=== PATIENT | female | born 1975 | race Caucasian/White ===

== ENCOUNTER 2020-11-05 13:43 | Inpatient (IN) | payer MEDICARE, OTHER ==
[~2020-11-05] VITALS: Ht 167.6 cm; Wt 121.0 kg
[~2020-11-05 13:43] MED LIST: AMARYL2 MG PO; CELEXA10 MG PO; K-DUR20 MEQ PO; LASIX20 MG PO; LASIX40 MG PO; LIPITOR20 M1 PO; LITHIUM300 MG PO; METFORMIN HCL500 MG PO; MOBIC7.5 MG PO; RISPERDAL 1MG TA1 MG PO; SYNTHROID50 MCG PO; TRAZODONE 100M100 MG PO; ZAROXOLYN2.5 MG PO
[2020-11-05 14:38] LABS: BASOPHIL 0.3 % (0-2); EOSINOPHIL 0.2 % (0-5); HCT 39.5 % (37.0-47.0); HGB 13.3 g/dl (12.5-16.0); LYMPHOCYTE 6.3 % (15-48); MCH 30.6 pg (25.0-31.0); MCHC 33.7 g/dL (32.0-36.0); MCV 90.8 fL (78.0-100.0); MONOCYTE 17.4 % (0-12); MPV 9.3 fL (6.0-9.5); NEUTROPHIL 73.5 % (41-80); NRBC 0.1; PLT 475 K/uL (150-400); RBC 4.35 M/uL (4.20-5.40); RDW 14.7 % (11.5-14.0)
[2020-11-05 15:03] LABS: LACTIC ACID 5.3 mmol/L (0.4-1.9)
[2020-11-05 15:05] LABS: ALBUMIN 3.7 g/dL (3.4-5.0); BILIRUBIN - TOTAL 0.2 mg/dL (0.2-1.0); CREATININE 1.1 mg/dL (0.51-0.95); GLOBULIN (CALCULATION) 4.1 g/dL; TOTAL PROTEIN 7.8 g/dL (6.4-8.2)
[2020-11-05 17:25] LABS: BILIRUBIN NEGATIVE (NEGATIVE); BLOOD NEGATIVE Ery/uL (NEGATIVE); CLARITY HAZY (CLEAR); COLOR YELLOW (YELLOW); GLUCOSE (U) NORMAL (NORMAL); LEUKOCYTES NEGATIVE Leu/uL (NEGATIVE); NITRITE NEGATIVE (NEGATIVE); PROTEIN NEGATIVE (NEGATIVE); UROBILINOGEN 0.2 mg/dL (0.2-1.0)
[2020-11-05] MEDS ORDERED: CLARITIN10 MG PO (20:03)
[2020-11-05] MEDS ORDERED: CILOSTAZOL100 MG PO (20:04)
[2020-11-06 06:05] LABS: BASOPHIL 0.2 % (0-2); EOSINOPHIL 0 % (0-5); HGB 12.2 g/dl (12.5-16.0); LYMPHOCYTE 4.2 % (15-48); MCHC 33.9 g/dL (32.0-36.0); MCV 91.4 fL (78.0-100.0); MONOCYTE 8.9 % (0-12); MPV 9.6 fL (6.0-9.5); NEUTROPHIL 83.9 % (41-80); NRBC 0.1; PLT 455 K/uL (150-400); RBC 3.94 M/uL (4.20-5.40)
[2020-11-06 06:45] LABS: WBC 35.5 K/uL (4.0-10.5)
[2020-11-06 06:48] LABS: CREATININE 0.89 mg/dL (0.51-0.95); POTASSIUM 4.1 mmol/L (3.5-5.1)
[2020-11-07 06:26] LABS: BASOPHIL 0.1 % (0-2); EOSINOPHIL 0 % (0-5); HCT 35.4 % (37.0-47.0); LYMPHOCYTE 8.4 % (15-48); MCH 31.1 pg (25.0-31.0); MCHC 33.9 g/dL (32.0-36.0); MCV 91.7 fL (78.0-100.0); MONOCYTE 7.6 % (0-12); MPV 9.6 fL (6.0-9.5); NRBC 0.1; PLT 457 K/uL (150-400); RBC 3.86 M/uL (4.20-5.40); RDW 15.3 % (11.5-14.0); WBC 29.2 K/uL (4.0-10.5)
[2020-11-07 07:46] LABS: CREATININE 0.8 mg/dL (0.51-0.95); POTASSIUM 3.6 mmol/L (3.5-5.1)
[2020-11-07 07:47] LABS: C-REACTIVE PROTEIN 9.8 mg/dL (<=0.90)
[2020-11-07] MEDS ORDERED: LACTINEX1 EACH PO (10:06)
[2020-11-07] MEDS ORDERED: ASCORBIC ACID500 MG PO (10:06)
[2020-11-07] MEDS ORDERED: LEVAQUIN750 MG PO (10:06)
[2020-11-07] MEDS ORDERED: ZINC SULFATE50 MG PO (10:06)
[2020-11-07] MEDS ORDERED: DEXAMETHASONE 2M2 MG PO (10:06)
[2020-11-07] MEDS ORDERED: JANUMET 50-1,01 EACH PO (10:11)
[2020-11-07] MEDS ORDERED: COMBIVENT RESPIM4 GM INH (10:44)
--- NOTE | 2020-11-07 12:51 | NUR ---
ADVISED BY DR. KEYES THAT PT. WOULD NEED HOME O2. SENT FAX TO [facility] FOR HOME O2.
== END 2020-11-07 13:34 | disposition home or self-care (01) | DRG 871 ==
LOC: FER 13:43 → FTCU 17:23 → FMS 17:23 → FTCU 17:51
PROVIDERS: Nurse Practitioner; Nurse Practitioner Family; ADMIT Allergy & Immunology Allergy
PROC: 8E0ZXY6 Isolation (ICD-10-PCS; principal; 2020-11-05)
PROC: XW033E5 Introduction of Remdesivir Anti-infective into Peripheral Vein, Percutaneous Approach, New Technology Group 5 (ICD-10-PCS; 2020-11-05)
DX: A41.9 Sepsis, unspecified organism (principal); U07.1 COVID-19; J12.82 Pneumonia due to coronavirus disease 2019; J96.91 Respiratory failure, unspecified with hypoxia; J98.11 Atelectasis; D69.3 Immune thrombocytopenic purpura; E11.65 Type 2 diabetes mellitus with hyperglycemia; E03.9 Hypothyroidism, unspecified; F31.9 Bipolar disorder, unspecified; E78.5 Hyperlipidemia, unspecified; E87.6 Hypokalemia; G47.33 Obstructive sleep apnea (adult) (pediatric); E11.40 Type 2 diabetes mellitus with diabetic neuropathy, unspecified; Z87.891 Personal history of nicotine dependence; Z88.2 Allergy status to sulfonamides; Z88.1 Allergy status to other antibiotic agents; Z79.84 Long term (current) use of oral hypoglycemic drugs; Z79.899 Other long term (current) drug therapy; Z90.81 Acquired absence of spleen; Z90.89 Acquired absence of other organs
CPT/HCPCS: 36415; 71046; 71275; 80048; 80053; 80178; 81003; 82962; 83605; 83735; 84145; 84443; 84484; 85025; 85379; 86140; 87040; 94010; 94640; 94664; 94667; 94668; 94760; C9399; J1100; J1650; J2543; J7030; J7050; Q9967; U0002